=== PATIENT | male | born 1945 | race Caucasian/White ===

== ENCOUNTER 2017-04-26 13:00 | Inpatient (IN) | payer OTHER, MEDICARE ==
[~2017-04-26] VITALS: Ht 177.8 cm; Wt 97.3 kg
--- NOTE | ~2017-04-26 | OR ---
PATIENT'S NAME: NIKOLAS SMITH [facility] AGE: 71 Y [address] ROOM: [place] [address] LOCATION: [facility] ADMIT DATE: 05/10/2017 OR/Procedure Report DISCHARGE DATE: FAMILY PHYSICIAN: ERIK SETHI PA-C ATTENDING PHYSICIAN: ERIK LINDA SURGEON: Erik Linda MD CRUCIBLE PACKER: 1. AYE Eddy. 2. Christopher Narvaez CST/CASINO SUPERVISOR. DATE OF PROCEDURE: 05/10/2017 PREOPERATIVE DIAGNOSIS: Degenerative joint disease, left knee. POSTOPERATIVE DIAGNOSIS: Degenerative joint disease, left knee. OPERATION: Left total knee arthroplasty with computer navigation. ANESTHESIA: Spinal anesthesia plus adductor canal block plus periarticular local anesthesia (ropivacaine with epinephrine and Toradol). ESTIMATED BLOOD LOSS: Less than 10 mL. DRAIN: None. SPECIMEN: None. COMPLICATIONS: None. IMPLANT SYSTEM: Maritza Triathlon. 1. Size 5 left posterior stabilized femoral component. 2. Size 5 universal modular tibial baseplate. 3. A 9 mm posterior stabilized size 5 X3 tibial polyethylene insert. 4. A 35 mm asymmetric X3 patellar component. INDICATIONS FOR SURGERY: Nikolas Smith is a 71-year-old male who presents with advanced left knee degenerative joint disease and associated severely compromised activities of daily living. The patient has decided to proceed with knee replacement after having been thoroughly counseled regarding the associated risks, benefits, and limitations. We have specifically reviewed the risks and implications of infection, deep venous thrombosis, pulmonary embolism, mortality, neurovascular complications, blood transfusion (and associated potential for disease transmission or transfusion reaction), stiffness, instability, mechanical deterioration of the components (due to wear and or loosening), and the potential need for revision. We have also emphasized the importance of active involvement and compliance with post- operative physical therapy as a means of optimizing range of motion and PATIENT'S NAME: NIKOLAS SMITH [facility] AGE: 71 Y [address] ROOM: [place] [address] LOCATION: [facility] ADMIT DATE: 05/10/2017 OR/Procedure Report DISCHARGE DATE: FAMILY PHYSICIAN: ERIK SETHI PA-C ATTENDING PHYSICIAN: ERIK LINDA functional recovery. Informed consent has been granted. DESCRIPTION OF PROCEDURE: The patient was positioned supine after administration of anesthesia and prophylactic antibiotics. A well-padded pneumatic tourniquet was placed around the left proximal thigh, and the left lower extremity was prepped and draped with vigilant sterile technique. The patient's name as well as the intended operative side and procedure were confirmed with a verbal time-out involving myself, the circulating nurse, the scrub nurse, and the anesthesiologist. Examination under anesthesia demonstrated no active skin lesions or masses. There was a large effusion. There was no erythema. There was no abnormal warmth. Range of motion under anesthesia was from a 5-degree flexion contracture to 130 degrees of flexion. There was no ligamentous insufficiency. The left lower extremity was elevated and exsanguinated with an Esmarch wrap, and the pneumatic tourniquet was inflated to 300mmHg. The knee was approached through a longitudinal midline incision. A medial parapatellar arthrotomy was performed and the patella was everted. Examination of the joint space demonstrated a large amount of benign-appearing translucent synovial fluid. There were no loose bodies. There was no synovitis. The cruciate ligaments were intact. The lateral meniscus was intact. There was complex degenerative tearing throughout the posterior half of the medial meniscus. There was full- thickness loss of articular cartilage involving 90% of the medial femoral condyle and 60% of the medial tibial plateau. There were small osteophytes at the lateral femoral condyle, lateral and medial margins of the femoral trochlea, lateral tibial plateau, and the superior and inferior margins of the patella. There was a moderate-sized osteophyte at the anterior aspect of the medial femoral condyle. There was full-thickness fissuring at the apex of the patella and a 1 cm diameter region of moderate grade 3 chondromalacia at the apex of the patella. Remnants of the menisci and cruciate ligaments were excised. The Syncronex computer navigation femoral tracker was pinned in place at the distal aspect of the femoral trochlea. Absence of motion between the femur and the tracking device was confirmed manually and visually. Femoral osseous landmarks were obtained in order to calibrate the computer navigation system. Landmarks included the center of rotation of the ipsilateral hip, the center-point of the distal femur, the femoral AP axis, 57 points on the medial femoral condyle articular surface, and 57 points on the lateral femoral condyle articular surface. The Syncronex computer navigation system was subsequently utilized to position the distal femoral resection block such that the distal femoral resection was performed perfectly perpendicular to the femoral mechanical PATIENT'S NAME: NIKOLAS SMITH [facility] AGE: 71 Y [address] ROOM: [id number] [place], [place] [address] LOCATION: [facility] ADMIT DATE: 05/10/2017 OR/Procedure Report DISCHARGE DATE: FAMILY PHYSICIAN: ERIK SETHI PA-C ATTENDING PHYSICIAN: ERIK LINDA. The distal femoral resection was performed with a NumberPicture oscillating saw. The Syncronex computer navigation tibial tracker was pinned in place at the anterior aspect of the tibial plateau. Absence of motion between the tibia and the tracking device was confirmed manually and visually. Tibial osseous landmarks were obtained in order to calibrate the computer navigation system. Landmarks included the center-point of the tibial plateau, the AP tibial axis, 57 points on the medial tibial plateau articular surface, 57 points on the lateral tibial plateau articular surface, the medial malleolus, and the lateral malleolus. The Syncronex computer navigation system was subsequently utilized to position the proximal tibial resection block such that the proximal tibial resection was performed perfectly perpendicular to the tibial mechanical axis. The proximal tibial resection was performed with a NumberPicture oscillating saw. Perpendicularity of the tibial resection with respect to the tibial shaft axis was reconfirmed by inserting a spacer- block attached to an extramedullary guide jason. External rotation of the anterior and posterior femoral resections was set parallel to the epicondylar axis and carefully adjusted in order to create a rectangular flexion gap. The box resection was performed with a reciprocating saw. Anterior and posterior chamfer resections were performed with the oscillating saw. Posterior condyle osteophytes were excised with an osteotome. All other osteophytes were excised with a rongeur. Resection of all remnants of the menisci was reconfirmed. Flexion and extension gaps were confirmed to be symmetric and well balanced with a spacer-block technique. The patella resection was performed with an oscillating saw such that the composite thickness of the reconstructed patella was equivalent to the thickness of the yuhaaviatam patella. Patella tracking was optimal, and there was no need for a lateral retinacular release. All trial components were removed and all prepared osseous surfaces were thoroughly irrigated with pulsatile saline lavage and dried prior to cementing all three components in a single stage using Maritza Simplex cement containing pre-mixed tobramycin. All extruded excess cement was removed. The entire joint space was thoroughly inspected and thoroughly irrigated with bacteriostatic pulsatile saline lavage to assure that there was no residual debris of any sort. Final range of motion was from full extension (with no passive hyperextension) to 130 degrees of flexion. Patella tracking was reconfirmed to be optimal. There was excellent anteroposterior stability at 90 degrees of flexion. There was less than 1 mm of medial lift-off to valgus stress in full extension. There was less than 1 mm of lateral lift-off to varus stress in full PATIENT'S NAME: NIKOLAS SMITH [facility] AGE: 71 Y [address] ROOM: [address] [address] LOCATION: [facility] ADMIT DATE: 05/10/2017 OR/Procedure Report DISCHARGE DATE: FAMILY PHYSICIAN: ERIK SETHI PA-C ATTENDING PHYSICIAN: ERIK LINDA. The arthrotomy was closed with multiple simple and [id number] interrupted #1 Vicryl. Subcutaneous tissues were thoroughly re-irrigated with bacteriostatic pulsatile saline lavage. Subcutaneous tissues were re- approximated with simple buried interrupted #0 Vicryl sutures. The skin was closed with simple buried interrupted 2-0 Vicryl sutures followed by surgical raudel. The dressing consisted of Xeroform gauze, 4x4 gauze, ABD pads and two 6-inch Narciso Wraps. There were no intra-operative complications. It should be noted that the physician's assistant unit forester played an active, integral role throughout this entire operation. By providing expert retraction, they greatly facilitated and expedited safe and effective exposure of the distal femur, proximal tibia and patella for preparation and implantation of the components. They were also actively involved in the patient's positioning, prepping and draping, as well as wound closure. MD MARTA TRAVIS/villa /[id number] d: 05/10/171922 t: 05/14/17 2220, OPERATIVE SUMMARY
[~2017-04-26 13:00] MED LIST: ACTOS30 MG PO; GLUCOPHAGE XR500 M1 PO; LIPITOR40 MG PO; MOBIC15 MG PO; MUCUS RELIEF C400 MG PO; NORCO 7.5-3251 EACH PO; NORVASC10 MG PO; PAIN RELIEVER325 MG PO; PRILOSEC20 MG PO; REVATIO 20 MG T20 MG PO; VITAMIN D1000 UNI1 PO; ZESTRIL40 MG PO; ZYLOPRIM100 MG PO; ZYRTEC10 M3 PO
--- NOTE | 2017-05-10 18:07 | NUR ---
ARRIVED FORM PACU AT 1445 SECOND HOURLY VITAL SIGNS WILL BE AT 1930. HAD NORCO 7.5MG PO ONCE FOR ME. ON ACCUCHECKS LAS ONE WAS 183. UNABLE TO VOID UPON ARRIVAL TO THE FLOOR SO WAS STRAIGHT CATHED AT 1530 FOR 1400 ML'S. HAS VOIDED 300ML'S AFTER BEING CATHED. HX OF SLEEP APNEA SO IS ON CONTIUUOUS PULSE OX. TAKING PO WELL. VERY COOPERATIVE WITH CARES.
--- NOTE | 2017-05-11 05:11 | NUR ---
Shift Summary: Patient can ambulate to the BR with one assist/walker. Gave 10mg Roxicodone at 0443. Block has not completely wore off. Still has numbness to left foot. He is voiding without difficulty. Tolerating ADA diet well. Accuchecks AC&HS with mild SS. Blood sugar was 330 last night with 6 units insulin given. Patient has sleep apnea. Placed on O2 2L for falling Sats when he goes to sleep. Please monitor patient for Alcohol withdrawal. No S&S this shift.
--- NOTE | 2017-05-11 09:35 | NUR ---
Introduced self/role to patient, lives here in [place]. Has a girlfriend who will be able to help some with minor tasks but she has a arm in a cast. He will have help for 5 days once home for sure. [facility] will [facility]. No barriers to going home or at home identified. He plans on home tomorrow. Added my name to his marker board, will follow.
--- NOTE | 2017-05-11 17:24 | NUR ---
Pt alert, oriented. Up recliner all shift. Amb to bathroom several times, amb smtih and to joint class. Pt dressing intact, dry, ice to knee. Voids well. CSM WNL. Pt has rated pain 3-4 with roxicodone x3, last at 1645. Block possibly not worn off yet. Pt plans to go home tomorrow. Has high risk VERONIQUE. No signs of withdrawal this shift. Accuchecls 182 and 156. IS use at 2750.
--- NOTE | 2017-05-12 03:22 | NUR ---
Shift Summary: Patient ambulates well with standby assist/walker. Good pain control with 3 Percocet at a time. Last dose at 0310. Took 3 norco q 6hr last night. No S&S of alcohol withdrawal. Tolerating regular diet well. Voiding without difficulty. Has large loose BM this am. Does not want miralax or Dulcolax this am. Is diabetic and on AC&HS accuchecks with a mild SS. Was 189 last night. Plans to go home today.
[2017-05-12] MEDS ORDERED: ECOTRIN325 MG PO (10:44)
[2017-05-12] MEDS ORDERED: COLACE100 MG PO (10:45)
[2017-05-12] MEDS ORDERED: MIRALAX17 GM PO (10:46)
--- NOTE | 2017-05-12 14:08 | NUR ---
Discharge instructions given to patient and his . Reviewed all medications, when to call the dr, s/s infection, dvt prevention, activity, vitor hose, care of dressing, ice/elevate. Refer to discharge instructions for details. All belongings sent with patient. to front door per w/c. EZ wraps sent with patient.
== END 2017-05-12 12:30 | disposition disaster alternative care site (69) | DRG 470 ==
LOC: G3N 05-10 09:25
PROVIDERS: ADMIT Orthopaedic Surgery
PROC: 0SRD0J9 Replacement of Left Knee Joint with Synthetic Substitute, Cemented, Open Approach (ICD-10-PCS; principal; 2017-05-10)
PROC: XR2H021 Monitoring of Left Knee Joint using Intraoperative Knee Replacement Sensor, Open Approach, New Technology Group 1 (ICD-10-PCS; principal; 2017-05-10)
DX: M17.12 Unilateral primary osteoarthritis, left knee (principal); I10 Essential (primary) hypertension; E11.9 Type 2 diabetes mellitus without complications; E78.5 Hyperlipidemia, unspecified; M54.9 Dorsalgia, unspecified; R33.9 Retention of urine, unspecified
CPT/HCPCS: A9270; C1713; C1776; J0690; J1885; J2001; J2250; J2795; J7030; J7120

== ENCOUNTER → 2017-04-29 | Outpatient (CLI) | payer OTHER, MEDICARE ==
[~2017-04-29] MED LIST changes: +COLACE100 MG PO; +ECOTRIN325 MG PO; +MIRALAX17 GM PO
== END ==
LOC: GNJRC 10:52
DX: Z01.818 Encounter for other preprocedural examination (principal); M17.12 Unilateral primary osteoarthritis, left knee; Z79.899 Other long term (current) drug therapy